=== PATIENT | female | born 1990 | race Native Hawaiian/Other Pacific Islander ===

== ENCOUNTER 2017-10-20 07:41 | Emergency (ER) | payer BC, OTHER ==
[~2017-10-20] VITALS: Ht 162.6 cm; Wt 68.0 kg
[2017-10-20 08:26] LABS: BASOPHILS # (AUTO) 0.1 K/uL (0.0-8.0); BASOPHILS % (AUTO) 0.6 % (0.0-2.0); EOSINOPHILS # (AUTO) 0.4 K/uL (0.0-0.7); EOSINOPHILS % (AUTO) 4.1 % (0.0-7.0); HEMATOCRIT 43.2 % (31.2-41.9); HEMOGLOBIN 15.1 g/dL (10.9-14.3); LYMPHOCYTES # (AUTO) 2.1 K/uL (20.0-40.0); LYMPHOCYTES % (AUTO) 23.6 % (20.5-51.5); MEAN CORPUSCULAR HEMOGLOBIN 31.5 uug (24.7-32.8); MEAN CORPUSCULAR HGB CONC 35 g/dL (32.3-35.6); MEAN CORPUSCULAR VOLUME 90.2 fL (75.5-95.3); MONOCYTES # (AUTO) 0.5 K/uL (2.0-10.0); MONOCYTES % (AUTO) 5.4 % (0.0-11.0); NEUTROPHILS % (AUTO) 66.3 % (38.5-71.5); PLATELET COUNT (AUTO) 280 K/uL (179-408); RED BLOOD CELL COUNT(AUTO) 4.79 MIL/uL (3.63-4.92)
[2017-10-20 08:28] LABS: CREATININE 0.7 mg/dL (0.6-1.3); POTASSIUM 3.6 mmol/L (3.5-5.1)
[2017-10-20 08:44] LABS: BILIRUBIN,DIRECT 0.1 mg/dL (0.0-0.2); BILIRUBIN,TOTAL 0.4 mg/dL (0.2-1.0); TOTAL PROTEIN, SERUM 7.9 g/dL (6.4-8.2)
--- NOTE | 2017-10-20 10:43 | NUR ---
Patient discharged to home in stable conditon. Written and verbal after care instructions given. Patient verbalizes understanding of instructions. IV/dc intact, pt took all belongings, pt amb w/o difficulty. pt stated feeling much better, hr returned to 88 in [place]
[2017-10-20 10:46] VITALS: BP 126/80
== END 2017-10-20 10:30 | disposition home or self-care (01) ==
LOC: ER 07:41
DX: R42 Dizziness and giddiness (principal); R11.0 Nausea; T50.995A Adverse effect of other drugs, medicaments and biological substances, initial encounter; Y92.89 Other specified places as the place of occurrence of the external cause
CPT/HCPCS: 36415; 70030-TC; 71010; 84703; 85025; 85730; 93005; A4663